=== PATIENT | male | born 1980 | race Caucasian/White ===

== ENCOUNTER 2018-12-19 13:22 | Emergency (ER) | payer SELFPAY ==
[~2018-12-19] VITALS: Ht 172.7 cm; Wt 115.2 kg
--- NOTE | 2018-12-19 13:41 | ED General ---
General Stated Complaint: HIGH BP; VOMITING History of Present Illness Date Seen by Provider: Dec 19, 2018 Time Seen by Provider: 13:41 Initial Comments Patient presents emergency department for evaluation of what he calls a lightheaded sensation started yesterday evening when he stood up from a chair to go to bed. He said he felt lightheaded sensation some of last night with motions of his head and he woke up with these sensations as well. He says today the symptoms became so severe it caused him to have nausea and vomited once. He denies any other symptoms of headache vision changes confusion unilateral weakness numbness or tingling. He says the spinning sensation makes it somewhat difficult to walk as it makes him feel unsteady. He says he has no medical problems and takes no medications on a regular basis. He says he went to an urgent care and they told him that he may be having a stroke and recommended he come to the emergency department. He is in no obvious distress with normal vital signs except for mild hypertension at 150/95. Allergies and Home Medications Allergies Coded Allergies: No Known Drug Allergies (Unverified , 12/19/18) Home Medications Lisinopril 10 Mg Tablet, 10 MG PO DAILY Prescribed by: JOHN DOWNS on 12/19/18 162 Meclizine HCl 25 Mg Tablet, 25 MG PO TID PRN for VERTIGO Prescribed by: JOHN DOWNS on 12/19/181626 Metformin HCl 500 Mg Tablet, 500 MG PO DAILY Prescribed by: JOHN DOWNS on 12/19/181626 Ondansetron 4 Mg Tab.rapdis, 4 MG PO Q6H PRN for NAUSEA/VOMITING-1ST LINE Prescribed by: JOHN DOWNS on 12/19/18 1627 Patient Home Medication List Home Medication List Reviewed: Yes Review of Systems Review of Systems Constitutional: no symptoms reported EENTM: no symptoms reported Respiratory: no symptoms reported Cardiovascular: no symptoms reported Gastrointestinal: No abdominal pain; nausea; No vomiting Genitourinary: no symptoms reported Musculoskeletal: no symptoms reported Skin: no symptoms reported Psychiatric/Neurological: Other (dizziness) All Other Systems Reviewed Negative Unless Noted: Yes Physical Exam Vital Signs Vital Signs - First Documented 12/19/18 13:40 Temp 98.0 Pulse 73 Resp 18 B/P (MAP) 152/91 (111) Pulse Ox 99 O2 Delivery Room Air Capillary Refill : Height, Weight, BMI Height: '" Weight: lbs. oz. 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, Other (normal finger to nose and heel to graves.) Skin: Normal Color, Warm/Dry Progress/Results/Core Measures Suspected Sepsis SIRS Temperature: Pulse: Respiratory Rate: Laboratory Tests 12/19/18 13:44: White Blood Count 12.7H Blood Pressure / Mean: Laboratory Tests 12/19/18 13:44: Creatinine 0.77, Platelet Count 239, Total Bilirubin 0.7 Results/Orders Lab Results Laboratory Tests Test 12/19/18 13:44 Range/Units White Blood Count 12.7 H 4.3-11.0 10^3/uL Red Blood Count 5.54 4.35-5.85 10^6/uL Hemoglobin 16.1 13.3-17.7 G/DL Hematocrit 47 40-54 % Mean Corpuscular Volume 85 80-99 FL Mean Corpuscular Hemoglobin 29 25-34 PG Mean Corpuscular Hemoglobin Concent 34 32-36 G/DL Red Cell Distribution Width 13.2 10.0-14.5 % Platelet Count 239 130-400 10^3/uL Mean Platelet Volume 10.2 7.4-10.4 FL Neutrophils (%) (Auto) 71 42-75 % Lymphocytes (%) (Auto) 21 12-44 % Monocytes (%) (Auto) 5 0-12 % Eosinophils (%) (Auto) 2 0-10 % Basophils (%) (Auto) 1 0-10 % Neutrophils # (Auto) 8.9 H 1.8-7.8 X 10^3 Lymphocytes # (Auto) 2.7 1.0-4.0 X 10^3 Monocytes # (Auto) 0.7 0.0-1.0 X 10^3 Eosinophils # (Auto) 0.2 0.0-0.3 10^3/uL Basophils # (Auto) 0.1 0.0-0.1 10^3/uL Sodium Level 133 L 135-145 MMOL/L Potassium Level 3.9 3.6-5.0 MMOL/L Chloride Level 97 L 98-107 MMOL/L Carbon Dioxide Level 24 21-32 MMOL/L Anion Gap 12 5-14 MMOL/L Blood Urea Nitrogen 9 7-18 MG/DL Creatinine 0.77 0.60-1.30 MG/DL Estimat Glomerular Filtration Rate > 60 BUN/Creatinine Ratio 12 Glucose Level 315 H 70-105 MG/DL Calcium Level 9.0 8.5-10.1 MG/DL Corrected Calcium 9.0 8.5-10.1 MG/DL Total Bilirubin 0.7 0.1-1.0 MG/DL Aspartate Amino Transf (AST/SGOT) 28 5-34 U/L Alanine Aminotransferase (ALT/SGPT) 40 0-55 U/L Alkaline Phosphatase 100 40-136 U/L Total Protein 6.9 6.4-8.2 GM/DL Albumin 4.0 3.2-4.5 GM/DL My Orders Orders - JOHN DOWNS DO Cbc With Automated Diff (12/19/18 13:51) Comprehensive Metabolic Panel (12/19/18 13:51) Meclizine Tablet (Antivert Tablet) (12/19/18 14:00) Lorazepam Injection (Ativan Injection) (12/19/18 14:00) Ns Iv 1000 Ml (Sodium Chloride 0.9%) (12/19/18 14:00) Ct Angio Head/Neck (12/19/18 13:51) Iohexol Injection (Omnipaque 350 Mg/Ml 1 (12/19/18 14:30) Received Contrast (Hold Metformin- Contr (12/19/18 14:30) Sodium Chloride Flush (Catheter Flush Sy (12/19/18 14:30) Ns (Ivpb) (Sodium Chloride 0.9% Ivpb Bag (12/19/18 14:30) Diphenhydramine Injection (Benadryl Inje (12/19/18 15:15) Lorazepam Tablet (Ativan Tablet) (12/19/18 15:12) Medications Given in ED Current Medications Medications Dose Ordered Sig/Raina Route Start Time Stop Time Status Last Admin Dose Admin Diphenhydramine HCl 25 mg ONCE ONCE IVP 12/19/18 15:15 12/19/18 15:16 DC 12/19/18 15:19 25 MG Iohexol 75 ml ONCE ONCE IV 12/19/18 14:30 12/19/18 14:50 DC 12/19/18 14:48 75 ML Lorazepam 1 mg ONCE ONCE IVP 12/19/18 14:00 12/19/18 14:01 DC 12/19/18 14:02 1 MG Meclizine HCl 25 mg ONCE ONCE PO 12/19/18 14:00 12/19/18 14:01 DC 12/19/18 14:02 25 MG Sodium Chloride 10 ml NEEDED PRN IV 12/19/18 14:30 12/19/18 14:48 10 ML Sodium Chloride 100 ml ONCE ONCE IV 12/19/18 14:30 12/19/18 14:50 DC 12/19/18 14:48 80 ML Vital Signs/I&O 12/19/18 13:40 Temp 98.0 Pulse 73 Resp 18 B/P (MAP) 152/91 (111) Pulse Ox 99 O2 Delivery Room Air Capillary Refill : Progress Note : Progress Note Patient with symptoms most consistent with peripheral vertigo in my opinion. Will treat with meclizine, ativan, IVF. Will check CT head, CTA carotid and brain then reassess. CT angiogram brain and carotids showed no signs of dissection or aneurysm obstruction or obvious signs of stroke. Patient's repeat neurologic exam is normal with normal finger to nose and heel to graves. He says his vertigo is improved but still persistent if he moves his head fast so I gave him additional Benadryl and Ativan. I went over results of CT and lab tests and told him that he likely does have diabetes and needs to be treated. I told him diet and exercise is important. I asked him about sinus congestion as there was signs of sinusitis on CT and he says that he has had congestion for the past 3 months which she takes Taylor for but no headaches or fevers. Patient feels better after additional doses of vestibular suppressant. Patient is able to ambulate with a steady gait so he'll be discharged in stable condition on meclizine and Zofran metformin and lisinopril. I told him to follow with primary care provider within 2-3 days and come back to the ED sooner with worsening pain neurologic changes other general concerns. Patient aware and agreeable with plan and verbalized understanding of the above instructions. Departure Impression Primary Impression: Vertigo Additional Impressions: Diabetes Hypertension Disposition: 01 HOME, SELF-CARE Condition: Stable Departure-Patient Inst. Referrals: NO,LOCAL PHYSICIAN (PCP/Family) Primary Care Physician Patient Instructions: Vertigo (a Type of Dizziness) (DC) Add. Discharge Instructions: Eat a low sugar diet. follow with PCP as soon as you can and come back to the eD with any new or worsening symptoms. Scripts Lisinopril (Lisinopril) 10 Mg Tablet 10 MG PO DAILY, #30 TAB Prov: JOHN DOWNS DO 12/19/18 Metformin HCl (Metformin HCl) 500 Mg Tablet 500 MG PO DAILY, #30 TAB Prov: JOHN DOWNS DO 12/19/18 Ondansetron (Ondansetron Odt) 4 Mg Tab.rapdis 4 MG PO Q6H PRN for NAUSEA/VOMITING-1ST LINE, #14 TAB Prov: JOHN DOWNS DO 12/19/18 Meclizine HCl (Meclizine HCl) 25 Mg Tablet 25 MG PO TID PRN for VERTIGO, #14 TAB Prov: JOHN DOWNS DO 12/19/18 Work/School Note: Work Release Form Date Seen in the Emergency Department: Dec 19, 2018 Return to Work: Dec 21, 2018 Restrictions: No Restrictions, Follow Up With [facility] JOHN DOWNS DO Dec 19, 2018 13:41
[2018-12-19 14:00] LABS: BASOPHILS % (AUTO) 1 % (0-10); EOSINOPHILS % (AUTO) 2 % (0-10); HEMATOCRIT 47 % (40-54); HEMOGLOBIN 16.1 G/DL (13.3-17.7); LYMPHOCYTES # (AUTO) 2.7 X 10^3 (1.0-4.0); LYMPHOCYTES % (AUTO) 21 % (12-44); MEAN CORPUSCULAR HEMOGLOBIN 29 PG (25-34); MEAN CORPUSCULAR HGB CONC 34 G/DL (32-36); MEAN CORPUSCULAR VOLUME 85 FL (80-99); MEAN PLATELET VOLUME 10.2 FL (7.4-10.4); MONOCYTES % (AUTO) 5 % (0-12); NEUTROPHILS # (AUTO) 8.9 X 10^3 (1.8-7.8); NEUTROPHILS % (AUTO) 71 % (42-75); PLATELET COUNT 239 10^3/uL (130-400); RED CELL DISTRIBUTION WIDTH 13.2 % (10.0-14.5); WHITE BLOOD COUNT 12.7 10^3/uL (4.3-11.0)
[2018-12-19] MEDS ORDERED: LORazepam INJ 2 MG/ML (ATIVAN) VIAL IVP ONE (14:00)
[2018-12-19] MEDS ORDERED: MECLIZINE 25 MG (ANTIVERT) TAB PO ONE (14:00)
[2018-12-19] MEDS ORDERED: NS IV 1000 ML 1,000 ML IV SCH (14:00)
[2018-12-19 14:01] LABS: BASOPHILS # (AUTO) 0.1 10^3/uL (0.0-0.1); EOSINOPHILS # (AUTO) 0.2 10^3/uL (0.0-0.3); MONOCYTES # (AUTO) 0.7 X 10^3 (0.0-1.0)
[2018-12-19 14:18] LABS: ALKALINE PHOSPHATASE 100 U/L (40-136); BILIRUBIN,TOTAL 0.7 MG/DL (0.1-1.0); BUN/CREATININE RATIO 12; CARBON DIOXIDE 24 MMOL/L (21-32); CHLORIDE 97 MMOL/L (98-107); CREATININE SERUM 0.77 MG/DL (0.60-1.30); GFR ESTIMATED > 60; GLUCOSE 315 MG/DL (70-105); POTASSIUM 3.9 MMOL/L (3.6-5.0); SODIUM 133 MMOL/L (135-145)
[2018-12-19 14:19] LABS: ALANINE AMINOTRANSFERASE 40 U/L (0-55); TOTAL PROTEIN 6.9 GM/DL (6.4-8.2)
[2018-12-19] MEDS ORDERED: CATHETER FLUSH 10 ML SYR IV PRN (14:30)
[2018-12-19] MEDS ORDERED: NS 100 ML (IVPB) BAG IV ONE (14:30)
[2018-12-19] MEDS ORDERED: IOHEXOL 350 MG/ML 100 ML (OMNIPAQUE 350) VIAL IV ONE (14:30)
[2018-12-19] MEDS ORDERED: HOLD METFORMIN - RECEIVED CONTRAST 20 ML VIAL IV SCH (14:30)
[2018-12-19] MEDS ORDERED: LORazepam 0.5 MG (ATIVAN) TABLET PO STA (15:12)
[2018-12-19] MEDS ORDERED: diphenhydrAMINE 50 MG/ML INJ (BENADRYL) IVP ONE (15:15)
--- NOTE | 2018-12-19 15:25 | Diagnostic Imaging Report ---
PROCEDURE: CT angiography of the head and CT angiography of the neck with and without contrast. TECHNIQUE: Contiguous noncontrast images were obtained from the skull base through the vertex. After intravenous contrast administration, helical CT angiography of the neck was performed. Source data was reformatted into multiple MIP projections. Delayed post contrast acquisition was also obtained. Auto Exposure Controls were utilized during the CT exam to meet ALARA standards for radiation dose reduction. INDICATION: Dizziness and lightheadedness. FINDINGS: The ventricles and sulci are within normal limits. There is no hydrocephalus. There is no midline shift. There is no intracranial mass, hemorrhage, or extra-axial fluid collection. There are no areas of diffusion restriction appreciated to suggest an acute CVA. There is mucosal thickening in the sphenoid sinus. The maxillary sinuses, ethmoid air cells, and frontal sinuses are clear. The mastoid air cells are clear. The globes and intraorbital structures are unremarkable. The nasopharyngeal, oropharyngeal, and hypopharyngeal tissues are symmetrical and without mass effect. The parotid, submandibular, and thyroid glands are normal in appearance. The lung apices are clear. The cervical spine is unremarkable. There is no pathologically enlarged adenopathy or mass in the neck. There is a normal branching pattern of the thoracic aorta. The common carotid arteries, vertebral arteries, and internal carotid arteries are widely patent. There is no dissection, stenosis, or occlusion. The distal internal carotid arteries and basilar arteries are widely patent. There are no proximal intracranial branch occlusions, vascular malformations, or aneurysms. IMPRESSION: 1. No acute intracranial abnormality. 2. Mucosal thickening in the sphenoid sinus. Otherwise, unremarkable CT neck. 3. Unremarkable CTA head and neck. Dictated by: Dictated on workstation # [id number]
[2018-12-19] MEDS ORDERED: MECL-106 PO (16:27)
[2018-12-19] MEDS ORDERED: LISI10TA2 PO (16:27)
[2018-12-19] MEDS ORDERED: METF-397 PO (16:27)
[2018-12-19] MEDS ORDERED: ONDA4TAB11 PO (16:27)
[2018-12-19 16:45] VITALS: BP 133/85
== END 2018-12-19 16:50 | disposition home or self-care (01) ==
LOC: ER FS 13:24
DX: R42 Dizziness and giddiness (principal); E11.9 Type 2 diabetes mellitus without complications; I10 Essential (primary) hypertension; Z79.84 Long term (current) use of oral hypoglycemic drugs
CPT/HCPCS: 36415; 70496; 70498; 80053; 85025